=== PATIENT | male | born 1990 | race Caucasian/White ===

== ENCOUNTER 2016-09-29 10:16 | Emergency (ER) | payer SELFPAY ==
[2016-09-29 10:41] VITALS: BP 132/83
== END 2016-09-29 12:46 | disposition left against medical advice (07) ==
LOC: EDSEX → ED 10:16
DX: S01.81XA Laceration without foreign body of other part of head, initial encounter (principal); M79.1 Myalgia; Y09 Assault by unspecified means; Y93.9 Activity, unspecified; Y92.89 Other specified places as the place of occurrence of the external cause; Y99.9 Unspecified external cause status; Z53.21 Procedure and treatment not carried out due to patient leaving prior to being seen by health care provider